=== PATIENT | female | born 1945 | race Caucasian/White ===

== ENCOUNTER 2016-11-08 18:52 | Emergency (ER) | payer MEDICARE, MEDICAID ==
[~2016-11-08] VITALS: Ht 154.9 cm; Wt 113.6 kg
[~2016-11-08 18:52] MED LIST: ALBU8.5H2 INHALATION; ATOR20TA65 PO; FLUO10CA20 PO; KETO10TA PO; MECL-114 PO; MULT-1018 PO; OXYB5TAB PO
[2016-11-08 19:01] VITALS: BP 154/87; PULSE 81; RESP 16; O2SAT 96
--- NOTE | 2016-11-08 19:52 | DRSVH ---
PROCEDURE: X-RAY RIGHT RIBS, TWO VIEWS ([id number]) INDICATIONS: fall, trauma TECHNIQUE: 2 views of the right ribs were acquired. COMPARISON: None. FINDINGS: Surgical changes and devices: None. Bones and chest wall: No fractures or dislocations. No suspicious bony lesions. Overlying soft tis sues appear unremarkable. Lungs and pleura: The visualized lung appears clear. No pleural effusions or pneumothorax are visib le. IMPRESSION: A definite fracture is not found. The area of maximal tenderness is over normal heterog eneity of costochondral junctions. Followup by delayed plain films or nuclear medicine bone scanning could be performed for more accurate assessment for detection of rib fractures if clinically warrant ed. Dictated by: William Melton M.D. on 11/08/2016 at 19:49 Approved by: William Melton M.D. on 11/08/2016 at 19:50
--- NOTE | 2016-11-08 21:03 | ED.REPORT ---
HPI-Abd Pain F 2 and Over Date of Service Nov 08, 2016 ED Provider: Dr. Aaron Law The patient is a 71 year old female who presents to the ED due to a ground level fall [employer]. She fell while trying to get to look under couch for dog fell onto right arm and side c/o right lateral rib pain. Pt complains that it hurts her right ribs when she moves, breaths, coughs, and sneezes. Nursing Notes Stated Complaint: FELL Chief Complaint: Multiple Trauma/Fall Nursing Notes Reviewed: Yes Allergies: Coded Allergies: codeine (Verified Adverse Reaction, Severe, N&V, 11/08/16) latex (Verified Adverse Reaction, Severe, ITCHING, 11/08/16) Scheduled PRN Albuterol HFA (Proair HFA) 8.5 Gm Hfa.aer.ad 2 PUFFS INHALATION Q4H PRN PRN For Shortness of Breath Naproxen (Naprosyn) 500 Mg Tablet 500 MG PO BID PRN PRN For Pain General Time Seen by MD: 21:02 Chief Complaint Other (right thoracic pain) Hx Obtained from: Patient Arrived by: Walk-in Sudden in Onset?: Yes Onset Occurred: Just prior to arrival Symptom Duration: Since onset Caused by: Fall Severity: Current: Mild Exacerbated by: Deep breath, Movement Recent Healthcare: No recent doctor visit, No recent hospitalization Similar Sx Previous: No Past Medical History Past Medical History denies Smoking History Current Every Day Smoker Ambulatory Status Ambulatory Status: Independent Review of Systems Musculoskeletal: Reports: Thoracic pain Complete sys rev & neg: except as marked. Physical Exam Initial Vital Signs Vital Signs (First) Date Time Temp Pulse Resp B/P Pulse Ox O2 Delivery O2 Flow Rate FiO2 11/08/16 19:01 36.1 81 16 154/87 96 Room Air Initial VS: Reviewed Head / Eyes: Atraumatic, Normocephalic, PERRL ENT: Mucous membranes moist, Conjunctiva normal Neck: Supple, Non-tender Extremities: Vascular intact, Neuro intact, No swelling Skin: Warm, Dry General / Constitutional: Awake, Alert, Cooperative Respiratory / Chest: Atraumatic, Breath sounds NL, Breath sounds = bilat, No respiratory distress no visible bruising tender to breathing and touch Cardiovascular: Heart rate NL, Regular rhythm, Heart sounds NL Abdomen: Atraumatic, Soft, Non-tender Back: Atraumatic, Inspection NL, Full range of motion moving neck well Interpretation & Diagnostics X-Ray Interpretation Xray Interpretation: RIB X-RAY IMPRESSION: A definite fracture is not found. The area of maximal tenderness is over normal heterogeneity of costochondral junctions. Followup by delayed plain films or nuclear medicine bone scanning could be performed for more accurate assessment for detection of rib fractures if clinically warranted. Dictated by: William Melton M.D. on 11/08/2016 at 19:49 Approved by: Willima Melton M.D. on 11/08/2016 at 19:50 Interpretation / Wet Read by: Interpret - Radiologist Re-Eval/Medical Decision Med Decision/Clinical Course 71-year-old presents with rib pain after a ground-level fall. No obvious fracture on x-ray. Home with incentive spirometer, Naprosyn and Percocet as needed for pain. Follow up with PCP. Counseled Regarding: Diagnosis, Lab results, Need for follow-up, When/why to return to ED Discharge & Departure Impression: Primary Impression: Rib pain on right side Additional Impressions: Rib injury Fall from ground level Disposition: Home Discharge Condition All VS Reviewed: Yes Condition: Stable Additional Instructions: We do not see a fracture at this time on your x-ray. This cannot exclude small nondisplaced fractures. In any case, the treatment of rib injuries is the same whether there is a small fracture or not. Refer to the enclosed instructions. Use your incentive spirometer frequently during the day to avoid splinting too heavily and to avoid pneumonia. Naprosyn twice daily for baseline pain relief. Always with food. Oxycodone additionally has needed. Follow-up with your doctor in the office. Return if any immediate issues with breathing over the weekend. Referrals: Zac Bean MD (PCP) Wilneribdelfina Attestation Portion of this note were transcribed by Lesia Ya. I, Dr. Law, personally performed the history, physical exam, and medical decision-making: I reviewed and confirmed the accuracy for the information in the transcribed note. Signed by: ramón Herring, 11/08/16 2300 Zac Bean MD, Christopher W MD Nov 08, 2016 21:03 Lesia Ya Nov 08, 2016 21:10
[2016-11-08] MEDS ORDERED: NAPR500T PO (21:12)
== END 2016-11-08 21:34 | disposition home or self-care (01) ==
LOC: SED 19:54
DX: S29.9XXA Unspecified injury of thorax, initial encounter (principal); W18.39XA Other fall on same level, initial encounter; Y93.89 Activity, other specified; Y92.89 Other specified places as the place of occurrence of the external cause; Y99.8 Other external cause status; F17.200 Nicotine dependence, unspecified, uncomplicated; Z88.5 Allergy status to narcotic agent; Z91.040 Latex allergy status
CPT/HCPCS: 71100; 94664; 96372; 99284; J1885